=== PATIENT | female | born 1955 | race Caucasian/White ===

== ENCOUNTER → 2018-05-19 16:07 | Outpatient (CLI) | payer OTHER, SELFPAY ==
[2018-05-19 17:59] LABS: Thyroid Stim Hormone (TSH) 1.35 uIU/mL (0.358-3.74)
== END ==
PROVIDERS: Visit Provider Nurse Practitioner
DX: E03.9 Hypothyroidism, unspecified (principal)
CPT/HCPCS: 36415; 84439; 84443; 84481

== ENCOUNTER → 2018-08-10 16:00 | Outpatient (CLI) | payer OTHER, SELFPAY ==
[2018-08-10 18:02] LABS: Microalbumin,Random Urine 11.7 mg/L (NO RANGE EST.)
[2018-08-10 18:03] LABS: ALB/GLOB Ratio 1.2 RATIO (0.9-2.4); AST(SGOT) 24 U/L (15-37); Alanine Aminotransfer ALT/SGPT 43 U/L (13-56); Albumin, Serum 4.1 g/dL (3.2-5.0); Alkaline Phosphatase 76 U/L (45-117); Anion Gap 9 (5-15); BUN 20 mg/dL (7-18); Calcium,Total 9.3 mg/dL (8.5-10.1); Chloride 100 mmol/L (98-107); Creatinine, Serum 0.91 mg/dL (0.55-1.02); EST Glomerular Filtration Rate 67 mL/min (>60); Est Glom Filt Rate - Afr Amer 81 mL/min (>60); Free T3 2.7 pg/mL (2.18-3.98); Globulin 3.5 g/dL (2.2-4.2); Glucose 163 mg/dL (74-106); Potassium 3.9 mmol/L (3.5-5.1); Protein, Total 7.6 g/dL (6.4-8.2); Sodium Level 136 mmol/L (136-145); T4 Free Direct 1.05 ng/dL (0.76-1.46); Thyroid Stim Hormone (TSH) 1.73 uIU/mL (0.358-3.74)
[2018-11-26 16:45] LABS: ALB/GLOB Ratio 1.3 RATIO (0.9-2.4); AST(SGOT) 18 U/L (15-37); Alanine Aminotransfer ALT/SGPT 34 U/L (13-56); Albumin, Serum 3.9 g/dL (3.2-5.0); Alkaline Phosphatase 71 U/L (45-117); Anion Gap 8 (5-15); BUN 19 mg/dL (7-18); Chloride 104 mmol/L (98-107); EST Glomerular Filtration Rate 67 mL/min (>60); Est Glom Filt Rate - Afr Amer 81 mL/min (>60); Free T3 3.1 pg/mL (2.18-3.98); Globulin 3.1 g/dL (2.2-4.2); Glucose 130 mg/dL (74-106); Potassium 3.8 mmol/L (3.5-5.1); Sodium Level 139 mmol/L (136-145); T4 Free Direct 1.17 ng/dL (0.76-1.46); Thyroid Stim Hormone (TSH) 0.94 uIU/mL (0.358-3.74)
[2018-11-26 17:16] LABS: Hemoglobin A1c 6.5 % (4.2-6.3)
== END ==
PROVIDERS: Visit Provider Nurse Practitioner
DX: E03.9 Hypothyroidism, unspecified (principal); E11.9 Type 2 diabetes mellitus without complications
CPT/HCPCS: 36415; 80053; 82043; 82570; 83036; 84439; 84443; 84481

== ENCOUNTER → 2018-11-26 15:40 | Outpatient (CLI) | payer OTHER, SELFPAY ==
[2018-08-17 16:03] VITALS: BMI 24.8
== END ==
PROVIDERS: Referring Provider Nurse Practitioner; Visit Provider Nurse Practitioner
DX: Z00.00 Encounter for general adult medical examination without abnormal findings (principal)

== ENCOUNTER → 2024-07-28 | Outpatient (CLI) | payer MEDICARE, SELFPAY ==
--- NOTE | 2024-07-28 13:37 | RAD_ITS ---
HISTORY: paresthesia of the skin. TECHNIQUE: XR Spine Lumbar Min 4 Views. COMPARISON: None. FINDINGS: VERTEBRAE: Vertebral body heights preserved. Posterior elements appear intact. ALIGNMENT: 6 mm anterolisthesis of L4-5. INTERVERTEBRAL DISCS: Mild intervertebral disc space narrowing of L4-5. RAD/L/S Spine Min 4 Views IMPRESSION: No acute fracture identified in the lumbar spine. Mild spondylosis and anterolisthesis of L4-5. Electronically Signed: Blanca Fragoso MD at 9:59 EDT ,
--- NOTE | 2024-07-28 13:38 | ART_ITS ---
Reason For Study: PVD Left Segmental Pressures Left brachial= 130mmHg. Left posterior tibial artery = 157mmHg. Left dorsalis pedis artery = 141mmHg. The left posterior tibial artery waveforms are triphasic. The left dorsalis pedis waveforms are triphasic. Right Segmental Pressures Right brachial= 124mmHg. Right posterior tibial artery = 163mmHg. Right dorsalis pedis artery = 153mmHg. The right posterior tibial artery waveforms are triphasic. The right dorsalis pedis waveforms are triphasic. Indices The right resting ankle brachial index is 1.25. The right ankle brachial index by the posterior tibial artery is 1.25. The right ankle brachial index by the dorsalis pedis is 1.18. The right digital-brachial index is 0.95. The left resting ankle brachial index is 1.21. The left ankle brachial index by the posterior tibial artery is 1.21. The left ankle brachial index by the dorsalis pedis is 1.08. The left digital-brachial index is 0.92. VL/Lower Ext Art Exam w/o Exercis Interpretation Summary Right DIANNA 1.25, normal. TBI and Doppler/PVR waveforms of the right leg normal a t rest. Left DIANNA 1.21, normal. TBI and Doppler/PVR waveforms of the left leg normal at rest. Ordering Physician: Timur Dale Referring Physician: CEASAR LEONG DO Performed By: Christa Walsh RVT, RDCS
== END | disposition home or self-care (01) ==
PROVIDERS: PCP Internal Medicine; Referring Provider Podiatrist; Visit Provider Podiatrist
DX: I73.89 Other specified peripheral vascular diseases (principal)
CPT/HCPCS: 72110; 93923

== ENCOUNTER → 2024-08-10 | Outpatient (CLI) | payer MEDICARE, SELFPAY ==
--- NOTE | 2024-08-10 13:53 | NEURO ---
NCS and/or EMG Patient Report Ordering Doctor: Timur Dale DATE OF SERVICE: 08/10/24 Annie presents with complaints of burning, tingling and numbness in both legs, worse on the right side. She reports sharp shooting pains in the feet. She reports a history of multiple ankle sprains. Electrodiagnostic findings: Right peroneal motor nerve demonstrates normal distal latency, amplitude and conduction velocity. Left peroneal motor nerve demonstrates normal distal latency and amplitude with borderline reduced conduction velocity. Tibial motor responses within normal limits bilaterally. Prolonged right tibial and right peroneal F?wave. Prolonged H?reflux bilaterally. Prolonged right superficial peroneal latency. Prolonged sural latency bilaterally with reduced conduction velocity. Left superficial peroneal response could not be obtained. Medial plantar responses are within normal limits bilaterally. Needle EMG testing was performed of the lower limbs. All muscles tested showed no evidence of denervation with normal motor unit action potentials. Electrodiagnostic impression: This is an abnormal study in the lower limbs. 1. Electrodiagnostic findings suggestive of peripheral polyneuropathy, sensory greater than motor. There is no evidence of axonal loss. 2. There is no electrodiagnostic evidence for lumbosacral radiculopathy. Multi Select Codes Neurology Neurology Interp Codes: 02614-09 Musc test done w/n test comp (interp) and 58520-24 Nrv cndj test 9-10 studies (interp)
== END | disposition home or self-care (01) ==
LOC: PSN 12:19
PROVIDERS: PCP Internal Medicine; Referring Provider Podiatrist; Visit Provider Podiatrist
DX: R20.2 Paresthesia of skin (principal)
CPT/HCPCS: 95886; 95912

== ENCOUNTER → 2024-09-16 | Outpatient (CLI) | payer MEDICARE, SELFPAY ==
--- NOTE | 2024-09-16 10:53 | MRI_ITS ---
STUDY: MRI LUMBAR SPINE WITHOUT CONTRAST REASON FOR EXAM: Female, 68 years old. Paresthesia of the skin, feet pain TECHNIQUE: Standardized fat and water weighted pulse sequences were obtained in the sagittal and axial planes. COMPARISON: None FINDINGS: T12-L1: Normal endplates. Normal disc height, hydration and morphology. Normal bilateral facet joints. Normal central canal and bilateral lateral recesses. Normal bilateral intervertebral neural foramina. Normal lumbar lordosis. There is grade 1 anterolisthesis at L4-5 There is no substantial scoliosis. Normal conus medullaris that terminates at the T12 level. L1-2: Normal endplates. Normal disc height, hydration and morphology. Normal bilateral facet joints. Normal central canal and bilateral lateral recesses. Normal bilateral intervertebral neural foramina. L2-3: Normal endplates. Normal disc height, hydration and morphology. Normal bilateral facet joints. Normal central canal and bilateral lateral recesses. Normal bilateral intervertebral neural foramina. L3-4: Disc bulge. Facet spurring and ligamentum flavum hypertrophy. Mild canal stenosis. Neural foramina are patent L4-5: Disc space narrowing. Disc bulge. Facet spurring with effusions and ligamentum flavum hypertrophy. Moderate canal stenosis. Bilateral foraminal distortion and narrowing. L5-S1: Normal endplates. Normal disc height, hydration and morphology. Mild spurring of the bilateral facet joints. Normal central canal and bilateral lateral recesses. Normal bilateral intervertebral neural foramina. Normal visualized sacral ala. Normal visualized paraspinous soft tissue structures. MRI/Spine Lumbar (Routine) IMPRESSION: Degenerative changes with L4-5 subluxation, canal stenosis, and foraminal narrowing. Electronically Signed: Fredy Dang MD at 10:43 EDT ,
== END | disposition home or self-care (01) ==
LOC: MRI 10:40
PROVIDERS: PCP Internal Medicine; Referring Provider Podiatrist; Visit Provider Podiatrist
DX: M79.671 Pain in right foot (principal); M79.672 Pain in left foot; R20.2 Paresthesia of skin
CPT/HCPCS: 72148